=== PATIENT | male | born 1955 | race Hispanic/Latino ===

== ENCOUNTER 2018-05-01 07:34 | Day surgery (SDC) | payer OTHER ==
--- NOTE | 2018-04-25 16:23 | RAD REPORT ---
EXAM DESCRIPTION: Radha Acuña (2 Views)04/25/2018 4:13 pm CLINICAL HISTORY: Preop/abdominal pain COMPARISON: None FINDINGS: The lungs appear clear of acute infiltrate. The heart is normal size IMPRESSION: No acute abnormalities displayed
[2018-04-25 16:51] LABS: Absolute Lymphocytes (CBC) 2.2 K/uL (0.7-4.9); Absolute Monocytes 0.5 K/uL (0.1-1.3); Absolute Neutrophil 2.4 K/uL (1.8-8.0); Basophils % 0.7 % (0-1.3); Eosinophils % 2.8 % (0-4.4); Hematocrit 49.1 % (39.6-49.0); Lymphocytes % 41.4 % (15.3-44.8); MCH 30.4 pg (27.0-35.0); MCV 93.8 fL (80-100); MPV 9.3 fL (7.6-11.3); Monocytes % 10.2 % (3.3-12.3); RBC Red Blood Cell Count 5.24 M/uL (4.33-5.43)
[2018-04-25 17:02] LABS: BUN Blood Urea Nitrogen 12 mg/dL (7-18); Bicarbonate 31 mmol/L (21-32); Glucose Level 95 mg/dL (74-106); Potassium 4.6 mmol/L (3.5-5.1); Sodium Level 144 mmol/L (136-145)
[2018-04-25 17:14] LABS: ALT/SGPT 28 U/L (12-78); AST/SGOT 22 U/L (15-37); Albumin 3.8 g/dL (3.4-5.0); Alkaline Phosphatase 100 U/L (45-117); Amylase Level 79 U/L (25-115); Bilirubin Direct < 0.1 mg/dL (0-0.2); Bilirubin Total 0.4 mg/dL (0.2-1.0); Lipase 157 U/L (73-393); Protein, Total 8.1 g/dL (6.4-8.2)
--- NOTE | 2018-04-26 09:24 | EKG ---
Test Date: 2018-04-25 Test Time: 16:08:41 Director Of Global Marketing: VINNY MEASUREMENT RESULTS: Intervals: Rate: 67 [place]: 144 QRSD: 102 QT: 392 QTc: 414 [place]: P: 44 [place]: 144 QRS: 41 T: 55 INTERPRETIVE STATEMENTS: Normal sinus rhythm Normal ECG No previous ECG available for comparison Electronically Signed On 04-26-18 09:23:17 CDT by Ramon Valdez
--- OUTSIDE RECORDS SUMMARY | 2018-05-01 07:38 | XMS REPORT ---
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 Problem Cholelithiases K80.20 Active Problem Allergic rhinitis, seasonal J30.2 Active Problem Enlarged prostate N40.0 Active Problem Benign prostatic hyperplasia N40.0 Active without lower urinary tract symptoms Problem Renal calculi N20.0 Active Problem Osteoarthritis M19.90 Active Problem Other chronic pain G89.29 Active Problem Benign essential HTN I10 Active Problem Fatty liver K76.0 Active Assessment Elevated PSA R97.20 Active Assessment History of renal calculi Z87.442 Active Assessment Benign prostatic hyperplasia N40.0 Active without lower urinary tract symptoms Medications Medication Code Code Instructions Start End Status Dosage System Date Date Amlodipine ND 25471239321 10 MG Orally Dec 14, Active 1 tablet Besylate Once a day 2017 Augmentin [facility] 63174554434 875-125 MG Active 1 tablet Orally every 12 hrs Flonase ND 87612871400 50 MCG/DOSE Active 1 spray in Nasally Once a each nostril day Proscar ND 56395459338 5 MG Orally Oct Active 1 tablet Once a day 2017 Flomax ND 06310947516 0.4 MG Orally Oct Active 1 capsule 30 Once a day 23, minutes after 2018 the same meal each day Triamcinolone ND 64317939693 0.5 % Active 1 application Acetonide Externally to affected Twice a day area Zyrtec Allergy ND 22067932074 10 MG Orally Active 1 tablet Once a day Results Name Result Date Reference Range Unit Abnormality Flag Abdomen 1 View (KUB) Summary Purpose eClinicalWorks Submission
--- OUTSIDE RECORDS SUMMARY | 2018-05-01 07:38 | XMS REPORT ---
:1955 Author Organization [employer] Care Team Providers Name Role Phone Bender, Na Provider Role Unavailable Allergies, Adverse Reactions, Alerts Substance Reaction Event Type Meclizine HCl Info Not Available Drug Allergy Problems Problem Type Condition Code Onset Dates Condition Status Problem Cholelithiases K80.20 Active Problem Osteoarthritis M19.90 Active Problem Other chronic pain G89.29 Active Problem Acute low back pain without M54.5 Active sciatica, unspecified back pain laterality Problem Renal calculi N20.0 Active Problem Herpes zoster without complication B02.9 Active Problem Benign essential HTN I10 Active Problem Fatty liver K76.0 Active Problem Enlarged prostate N40.0 Active Problem Benign prostatic hyperplasia without N40.0 Active lower urinary tract symptoms Assessment Acute low back pain without M54.5 Active sciatica, unspecified back pain laterality Assessment Herpes zoster without complication B02.9 Active Problem 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 Active Problem Allergic rhinitis, seasonal J30.2 Active Medications Medication Code Code Instructions Start End Status Dosage System Date Date Augmentin [facility] 33700934468 875-125 MG Active 1 tablet Orally every 12 hrs Flomax [facility] 40210254055 0.4 MG Orally Oct Active 1 capsule 30 Once a day 23, minutes after 2018 the same meal each day Valacyclovir HCl [facility] 26141695860 1 GM Orally Active 1 tablet twice a day Lidocaine [facility] 62463474739 5 % Externally Active 1 application Three times a to affected day area as needed Amlodipine ND 01350359267 10 MG Orally Dec 14, Active 1 tablet Besylate Once a day 2017 Flonase [facility] 83197541896 50 MCG/DOSE Active 1 spray in Nasally Once a each nostril day Gabapentin [facility] 72855401105 300 MG Orally Active 1 capsule Once a day every 8 hours Triamcinolone ND 53342239478 0.5 % Active 1 application Acetonide Externally to affected Twice a day area Proscar [facility] 32037000184 5 MG Orally Oct Active 1 tablet Once a day 2017 [facility] Allergy [facility] 55219277187 10 MG Orally Active 1 tablet Once a day Results No Known Results Summary Purpose eClinicalWorks Submission
[2018-05-01] MEDS ORDERED: Ringers Lactate 1,000 ML IV ONE (09:16)
[2018-05-01] MEDS ORDERED: Ciprofloxacin 200mg IV 0 MG/0 ML IV.SOLN. IV ONE (09:17)
[2018-05-01] MEDS ORDERED: PROPOFOL 200 MG/20 ML VIAL IV ONE (09:18)
[2018-05-01] MEDS ORDERED: LIDOCAINE 1% MPF 5 ML VIAL ONE (09:19)
[2018-05-01] MEDS ORDERED: MIDAZOLAM HCL 2 MG/2 ML INJ ONE (09:19)
[2018-05-01] MEDS ORDERED: FENTANYL CITR 100 MCG/2 ML ONE (09:19)
[2018-05-01] MEDS ORDERED: ROCURONIUM 50 MG/5 ML VIAL IV ONE (09:21)
[2018-05-01] MEDS ORDERED: CIPROFLOXACIN 400mg IV 400 MG/200 ML BAG IV ONE (09:26)
[2018-05-01] MEDS ORDERED: GLYCOPYRROLATE 0.2 MG/ML SYR ONE (10:14)
[2018-05-01] MEDS ORDERED: KETOROLAC 30 MG/ML INJ ONE (10:14)
[2018-05-01] MEDS ORDERED: NEOSTIGMINE 1 MG/ML -5 ML SYRINGE ONE (10:15)
[2018-05-01] MEDS ORDERED: ONDANSETRON 4 MG/2 ML VIAL ONE (10:15)
--- NOTE | 2018-05-01 10:39 | P.BOP ---
Preoperative diagnosis: acute cholecystitis, symptomatic cholelithiasis Postoperative diagnosis: same Primary procedure: Laparoscopic cholecystectomy Road Consultant: LUIS MARIEE Estimated blood loss: <10cc Specimen: gb Findings: as above Anesthesia: General Complications: None Drain(s): Other Transferred to: Recovery Room Condition: Good
--- NOTE | 2018-05-01 10:42 | P.BOP ---
Preoperative diagnosis: acute cholecystitis, symptomatic cholelithiasis Postoperative diagnosis: same Primary procedure: Laparoscopic cholecystectomy [employer] Hand: LUIS MARIEE Estimated blood loss: <10cc Specimen: gb Complications: None Drain(s): Other Transferred to: Recovery Room Condition: Good
--- NOTE | 2018-05-01 19:40 | OP ---
Surgeon: Kuldip Bradshaw MD [employer] Laboratory Assistant: EMILY Farias. Diagnoses: Acute cholecystitis, symptomatic cholelithiasis. Postoperative Diagnoses: Acute cholecystitis, symptomatic cholelithiasis. Procedure: Laparoscopic cholecystectomy. Ebl: Less than 10 cc. Specimen: Gallbladder. Indications: This is a case of a 63-year-old patient, comes to us with acute abdominal pain, diagnos ed with acute cholecystitis, symptomatic cholelithiasis. The benefits, alternatives, and risks of la paroscopic, possible open cholecystectomy fully explained, which include, but are not limited to infe ction, bleeding, damage to adjacent structures, anesthesia complication, choledocholithiasis, bile le ak, pancreatitis, [place], and even . He also understood this may not relieve any symptoms. He migh t need more than one surgical intervention. He understood. Signed a consent. Description Of Procedure: The patient was brought to the operating room and placed in the supine pos ition. Anesthesia was done without complication. Abdominal area was prepped and draped in a sterile fashion. Marcaine 0.5% injected for local anesthetic, followed by sharp incision of the skin in the infraumbilical region. Incision was carried down to fascia, which was opened under direct vision. Peritoneum was encountered, opened under direct vision. Vicryl #1 placed inside the fascia. Tye trocar was carefully introduced. No bleeding was obtained. I placed 3 more trocars, 5 mm each one o f them in the epigastric and right upper quadrant area. The grasper was placed in the fundus of the gallbladder, another grasper in the infundibulum, retracted the gallbladder in the inferolateral fash ion exposing the triangle of Calot and obtaining critical view of safety. The cystic duct and cystic artery were clearly isolated free circumferentially and a connection between those and the gallbladd er was clearly identified. I proceeded to ligate those by using at least 3 clips proximal, 1 clip di stal, ligation in middle. Same was done with the cystic artery. No bile leak. No bleeding. The ga llbladder was removed from liver using Bovie cauterizer and removed from abdominal cavity using an En doCatch through the umbilical incision. The area was inspected once again. No bile leak. No bleedi ng. At that moment, I proceeded to remove the trocars under direct vision. Deflated pneumoperitoneu m. Closed the fascia with #1 Vicryl, irrigated subcutaneous tissue, and closed that with 3-0 chromic and skin in a subcuticular fashion with 3-0 chromic and Steri-Strips on top. Sponge, count, and ins trument counts were correct. The patient tolerated the procedure well. The patient was sent to [facility] in stable condition. Diagnoses: Acute cholecystitis , symptomatic cholelithiasis. Procedure: Laparoscopic cholecystectomy. Disposition: Home. Activity: As tolerated. No heavy lifting. Followup: Follow up in my office in 1 week. Call for appointment [phone]. Keep area dry for 48 ho urs, then may shower. Keep Steri-Strips intact. Medication includes Cipro 500 p.o. q.12, Tylenol No .3 q.4 hours p.r.n. pain. WILBER/CHRISTINA Voice ID: [id number] Report ID: [id number]
== END 2018-05-01 12:00 | disposition home or self-care (01) ==
LOC: OR 07:34
PROVIDERS: ATTEND Surgery
PROC: 0FT44ZZ Resection of Gallbladder, Percutaneous Endoscopic Approach (ICD-10-PCS; principal; 2018-05-01 10:30)
DX: K80.12 Calculus of gallbladder with acute and chronic cholecystitis without obstruction (principal); I10 Essential (primary) hypertension; K21.9 Gastro-esophageal reflux disease without esophagitis; Z82.49 Family history of ischemic heart disease and other diseases of the circulatory system; Z80.42 Family history of malignant neoplasm of prostate; Z80.0 Family history of malignant neoplasm of digestive organs
CPT/HCPCS: 36415; 47562; 71046; 80048; 80076; 82150; 83690; 85025; 88304; 93005; J0744; J2250; J2405; J2710; J3010